=== PATIENT | female | born 1995 | race Caucasian/White ===

== ENCOUNTER 2019-09-24 00:49 | Emergency (ER) | payer SELFPAY ==
[~2019-09-24] VITALS: Ht 170.2 cm; Wt 90.9 kg
[2019-09-24 00:53] VITALS: BP 117/65; TEMP 97.9
[2019-09-24 01:34] LABS: BASO % 0.3 % (0.0-2.0); EOS # 0.1 (0.0-0.7); EOS % 1.2 % (0-4.0); GRAN # 9.4 (1.4-6.5); GRAN % 84.1 % (42.2-75.2); HEMATOCRIT 47.6 % (37.0-47.0); HEMOGLOBIN 16.5 g/dl (12.5-16.0); LYMPH # 0.9 (1.2-3.4); LYMPH % 8.4 % (20.0-51.0); MEAN CELL VOLUME 86 fl (80.0-100.0); MEAN CORPUSCULAR HEMOGLOBIN 30 pg (27.0-31.0); MEAN CORPUSCULAR HGB CONC 35 g/dl (33.0-37.0); MONO # 0.6 (0.1-0.6); MONO % 5.8 % (1.7-9.3); PLATELET COUNT 322 K/mm3 (130-400); RED BLOOD COUNT 5.53 M/mm3 (4.10-5.30); REDCELL DISTRIBUTION WIDTH-CV 12.4 % (11.5-14.5)
[2019-09-24 01:46] LABS: ALBUMIN 4.8 gm/dL (3.5-5.0); BILIRUBIN,TOTAL 0.9 mg/dL (0.0-1.0); CALCIUM 9.5 mg/dL (8.4-10.2); CREATININE, serum 0.88 (0.52-1.25); POTASSIUM 3.7 mmol/L (3.4-5.0); TOTAL PROTEIN 8.8 gm/dL (6.4-8.2)
[2019-09-24] MEDS ORDERED: ZOFRAN ODT4 MG PO (02:53)
[2019-09-24 03:01] VITALS: PULSE 74
== END 2019-09-24 03:06 | disposition home or self-care (01) ==
LOC: COL.ER 00:49
PROVIDERS: Emergency Medicine
DX: R11.2 Nausea with vomiting, unspecified (principal); R19.7 Diarrhea, unspecified
CPT/HCPCS: J1885; J2405; J2550; J7030

== ENCOUNTER 2021-04-23 03:14 | Emergency (ER) | payer SELFPAY ==
[~2021-04-23] VITALS: Ht 172.7 cm; Wt 96.8 kg
[~2021-04-23 03:14] MED LIST: ZOFRAN ODT4 MG PO
[2021-04-23] MEDS ORDERED: PEPCID 20MG TAB20 MG PO (05:00)
[2021-04-23] MEDS ORDERED: ZOFRAN ODT4 MG PO (05:00)
[2021-04-23] MEDS ORDERED: IMODIUM 2MG CAPS2 MG PO (05:00)
[2021-04-23 05:10] VITALS: BP 105/75; PULSE 94; TEMP 99.3
== END 2021-04-23 05:10 | disposition home or self-care (01) ==
LOC: COL.ER 03:14
DX: U07.1 COVID-19 (principal); M54.5 Low back pain; R11.2 Nausea with vomiting, unspecified; R19.7 Diarrhea, unspecified
CPT/HCPCS: J1885; J8540